=== PATIENT | female | born 1975 | race African-American/Black ===

== ENCOUNTER 2018-07-13 19:25 | Emergency (ER) | payer BC, OTHER ==
[2018-07-13 19:43] VITALS: BP 128/85; PULSE 73; TEMP 98.4; BMI 27.5
[2018-07-13] MEDS ORDERED: DIPHTH,PERTUSS(ACELL),TET 0.5 ML DISP.SYRIN IM ONE (20:30)
--- NOTE | 2018-07-13 20:43 | PDOC ---
History of Present Illness - General Chief Complaint: Injury Stated Complaint: RIGHT ANKLE LACERATION Time Seen by Provider: 07/13/18 19:32 - History of Present Illness Initial Comments: 07/13/18 21:00 43 no past medical history and sister dropped a beer can on her right ankle patient sustained a 3cm laceration painful moderate with movement able to ambulate no other injury sustained persistent constant. Past History - Past Medical History Allergies/Adverse Reactions: Allergies Allergy/AdvReac Type Severity Reaction Status Date / Time No Known Allergies Allergy Verified 07/13/18 19:36 Home Medications: Ambulatory Orders NK [No Known Home Medication] 07/13/18 COPD: No - Suicide/Smoking/Psychosocial Hx Smoking History: Never smoked Hx Alcohol Use: Yes (SOCIAL) Drug/Substance Use Hx: No Substance Use Type: None Review of Systems - Review of Systems Comments:: 07/13/18 21:00 ROS: A complete review of 10 out of 10 review of systems is taken and is negative apart from what is previously mentioned below and in the HPI. *Physical Exam - Vital Signs Last Vital Signs Temp Pulse Resp BP Pulse Ox 98.4 F 73 15 128/85 100 07/13/18 19:30 07/13/18 19:30 07/13/18 19:30 07/13/18 19:30 07/13/18 19:30 - Physical Exam Comments: 07/13/18 21:02 Vitals: Triage Vital signs reviewed General Appearance: no acute distress, well nourished well developed, Extremities: Full range of motion to all extremities, no cyanosis, clubbing, or edema Skin: Warm and dry, 3 cm laceration to right lateral lower sanchez. Superficial. Neurovascularly intact distally. Neuro: AOX3; Cranial Nerves 2-12 grossly intact, Strength intact to all extremities, Sensation intact to all extremities,gait normal Psych: normal mood, normal affect ED Treatment Course - RADIOLOGY Radiology Studies Ordered: Category Date Time Status ANKLE-RIGHT [RAD] Stat Radiology 07/13/18 19:32 Taken Medical Decision Making - Medical Decision Making 07/13/18 20:40 3 cm laceration to right lateral lower sanchez above the ankle after a can of beer was dropped on her foot by her sister accidentally. No fracture on x-ray. 11 stitches placed 5.0 nylon with good approximation. Patient made aware of scar. Findings, the need for follow-up and strict return instructions discussed with patient. *DC/Admit/Observation/Transfer Diagnosis at time of Disposition: Laceration - Discharge Dispostion Disposition: HOME Condition at time of disposition: Good Decision to Admit order: No - Referrals Referrals: Jose Leal MD [Primary Care Provider] - - Patient Instructions Printed Discharge Instructions: Laceration Repair Additional Instructions: Keep covered clean and dry for the next 24 hours then bacitracin twice a day and cover. Return to the emergency department immediately for any redness streaking red lines fever bleeding Poss signs of infection or for any concerns. Otherwise return to the emergency department in 7 days for suture removal. - Post Discharge Activity
== END 2018-07-13 20:50 | disposition home or self-care (01) ==
LOC: FER 19:25
PROC: 0HQKXZZ Repair Right Lower Leg Skin, External Approach (ICD-10-PCS; principal; 2018-07-13)
PROC: 3E0234Z Introduction of Serum, Toxoid and Vaccine into Muscle, Percutaneous Approach (ICD-10-PCS; 2018-07-13)
DX: S91.011A Laceration without foreign body, right ankle, initial encounter (principal); W20.8XXA Other cause of strike by thrown, projected or falling object, initial encounter; Y93.89 Activity, other specified; Y92.9 Unspecified place or not applicable
CPT/HCPCS: 73610-TC-RT-FY; 90715; 99282-25